=== PATIENT | male | born 1965 | race Caucasian/White ===

== ENCOUNTER 2018-01-18 12:46 | Observation (INO) ==
[2018-01-18] MEDS ORDERED: Isovue-370 500 ML INFUS..BTL IV ONE ×2 (12:53→12:59)
[2018-01-18] MEDS ORDERED: Aspirin 81 MG TAB.CHEW PO ONE (12:54)
[2018-01-18] MEDS ORDERED: Ondansetron 4 MG/2 ML VIAL IVP ONE (13:01)
[2018-01-18] MEDS: Nitroglycerin 0.4 MG TAB.SUBL SL ONE ×2 (13:01→13:08)
[2018-01-18] MEDS ORDERED: Ondansetron 4 MG/2 ML VIAL ONE (13:03)
--- NOTE | 2018-01-18 13:03 | Emergency Department Note ---
Disposition Clinical Impression: Thyroid nodule Chest pain Qualifiers: Chest pain type: unspecified Qualified Code(s): R07.9 - Chest pain, unspecified Disposition: Admitted As Inpatient Condition: Fair Chest Pain HPI - General Chief Complaint: ED Chest Pain Stated Complaint: chest pain Source: patient, EMS Limitations: no limitations Vital Signs Reviewed: Yes Nursing Notes Reviewed: Yes - History of Present Illness HPI Narrative: 52-year-old male presents emergency department with concern for chest pain. Patient states that he was having chest pain this morning about 7 AM, went to sleep. 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 He pulled into the [employer] and it woke up with sharp chest pain radiating to his back. Patient states that the pain is worsened when he had a previous heart attack. He also describes a similar nature. Significant other reports that patient has had right flank pain as well. No history of kidney stones. Patient does have known cardiac history. He has stents. Patient was brought in via EMS who got patient from the [employer] at which he was parked. He did not receive aspirin on the EMS. Severity scale (1-10): 10 - Related Data Allergies Allergy/AdvReac Type Severity Reaction Status Date / Time No Known Allergies Allergy Verified 01/18/18 13:07 All systems ED: reviewed and negative except as stated. Review of Systems: As Per HPI Constitutional: Denies: fever Cardiovascular: Reports: chest pain Respiratory: Reports: dyspnea Gastrointestinal: Reports: nausea, vomiting Genitourinary: Denies: urgency, dysuria, hematuria Musculoskeletal: Reports: back pain, other (Right flank pain) Neurological: Denies: weakness, numbness, paresthesias Chest Pain PMH - Past Medical History Medical history: Reports: coronary artery disease, diabetes, hyperlipidemia, hypertension Psychiatric history: Reports: no psych history - Social History Smoking Status: Current every day smoker Alcohol use: Reports: none Drug use: Reports: none Physical Exam - General Limitations: no limitations General appearance: alert, in distress, other (Patient appears better comfortable, grabbing his chest, putting a rag over his head.) - Head Head exam: normocephalic - Eye Eye exam: Present: EOMI. Absent: scleral icterus - ENT ENT exam: normal oropharynx - Neck Neck exam: Present: trachea midline - Chest Chest inspection: Present: symmetric chest wall rise - Respiratory Respiratory exam: Present: normal lung sounds bilaterally. Absent: respiratory distress - Cardiovascular Cardiovascular exam: Present: regular rate, normal rhythm, normal heart sounds - Abdominal Exam Abdominal exam: Present: soft, Non-Tender. Absent: distention, guarding, rebound, rigidity - Extremities Exam Extremities exam: Present: normal capillary refill - Neurological Exam Neurological exam: Present: alert, oriented X3 - Skin Skin exam: Present: diaphoresis Course Vital Signs Temperature 97.6 F 01/18/18 12:49 Pulse Rate 83 01/18/18 12:49 Respiratory Rate 26 01/18/18 12:49 Blood Pressure 159/81 01/18/18 12:49 O2 Sat by Pulse Oximetry 97 01/18/18 12:49 Temperature 97.6 F 01/18/18 12:49 Pulse Rate 93 01/18/18 15:52 Respiratory Rate 16 01/18/18 15:52 Blood Pressure 155/95 01/18/18 15:52 O2 Sat by Pulse Oximetry 97 01/18/18 15:52 Oxygen Delivery Oxygen Delivery Room Air Chest Pain - MDM Narrative Medical decision making narrative: 52-year-old male presents emergency department with concern for chest pain. Patient initially appears to be in acute distress. He is diaphoretic. He is clutching his chest. Initial electrocardiogram revealed a [address] segment elevation in the anterior and septal leads. There were no reciprocal changes. I spoke with Dr. Goins about the EKG and he agrees that this not not meet STEMI criteria. Patient given aspirin in the emergency part. He is also given nitroglycerin. Patient was given fentanyl. [facility] took him back to perform a CT angiogram of his chest and abdomen and pelvis. These were negative for any signs of intrathoracic or any intra-abdominal abnormality that would be concerning for dissection. There was an incidental 3.2 x 2.2 cm right thyroid lobe nodule. No signs of kidney stones. With a heart score 6, patient was admitted for further evaluation and observation as he is at high risk for ACS. Pain had improved significantly upon admission. Discussion at bedside regarding admission for observation of his chest pain was made with the patient. He agreed with the plan. Patient was not in any acute distress and was given an medically stable at time of admission to the hospital. Angiography CT 01/18/18 12:53 IMPRESSION: No evidence of aortic dissection or aneurysm. No acute abnormality on CTA of the chest, abdomen or pelvis. Mild to moderate atherosclerotic disease of the infrarenal abdominal aorta. Incidentally noted 3.2 x 2.2 cm right thyroid lobe nodule. Recommend further evaluation with thyroid ultrasound in the nonacute outpatient setting. RECOMMENDATIONS: Managing Incidental Thyroid Nodule Detected at CT or MRI or US 1. Further evaluation by thyroid Ultrasound recommended for these incidental nodules: Patient Age 35 years or more - Nodule 1.5 cm in size or greater Recommendations for f/u of Incidental Thyroid Nodules (ITN) found on CT, MR, NM and Extrathyroidal US are based upon the ACR white paper and [place] 3-tiered system for managing ITNs: J Am Vanessa Radiol. 2014;12(2): 143-50 D/ / 01/18/2018 14:07:53 Salvador Sanchez MD / Rosa Umana Interpreting Provider: Salvador Sanchez MD Chest X-Ray 01/18/18 12:54 IMPRESSION: No acute cardiopulmonary findings. D/ / Callie Willis MD / Callie Willis MD Interpreting Provider: Callie Willis MD Abdomen/Pelvis CTA 01/18/18 12:59 IMPRESSION: No evidence of aortic dissection or aneurysm. No acute abnormality on CTA of the chest, abdomen or pelvis. Mild to moderate atherosclerotic disease of the infrarenal abdominal aorta. Incidentally noted 3.2 x 2.2 cm right thyroid lobe nodule. Recommend further evaluation with thyroid ultrasound in the nonacute outpatient setting. RECOMMENDATIONS: Managing Incidental Thyroid Nodule Detected at CT or MRI or US 1. Further evaluation by thyroid Ultrasound recommended for these incidental nodules: Patient Age 35 years or more - Nodule 1.5 cm in size or greater Recommendations for f/u of Incidental Thyroid Nodules (ITN) found on CT, MR, NM and Extrathyroidal US are based upon the ACR white paper and [place] 3-tiered system for managing ITNs: J Am Vanessa Radiol. 2014;12(2): 143-50 D/ / 01/18/2018 14:07:53 Salvador Sanchez MD / Rosa Umana Interpreting Provider: Salvador Sanchez MD - Lab Data Result diagrams: 01/18/18 13:04 01/18/18 13:04 Lab Results 01/18/18 01/18/18 01/18/18 Range/Units 12:54 12:55 13:00 WBC (4.3-11.1) K/mcL RBC (4.19-5.50) M/mcL Hgb (12.9-16.9) g/dL Hct (37.5-50.1) % MCV (83.0-100.0) fL MCH (28.0-33.3) pg MCHC (31.6-35.5) g/dL RDW (11.5-14.5) % Plt Count (140-400) K/mcL MPV (9.4-12.4) fL Immature Gran % (0-4) % Seg Neutrophils % % Lymphocytes % % Monocytes % % Eosinophils % % Basophils % % Neutrophils # (1.6-8.9) K/mcL Lymphocytes # (0.6-4.6) K/mcL Monocytes # (0.0-1.3) K/mcL Eosinophils # (0.0-0.6) K/mcL Basophils # (0.0-0.2) K/mcL PT 11.3 (9.4-12.1) Seconds INR 1.0 APTT 27.7 (26.0-36.0) Seconds Sodium 140 (136-145) mEq/L Potassium 4.3 (3.5-5.1) mEq/L Chloride 107 (98-107) mEq/L Carbon Dioxide 20 L (23-29) mEq/L BUN 17 (6-20) mg/dL Creatinine 1.17 (0.70-1.30) mg/dL Est GFR ( Amer) > 60 (> 60) Est GFR (Non-Af Amer) > 60 (> 60) BUN/Creatinine Ratio 15 (6-26) Glucose 258 H (70-105) mg/dL Calculated Osmolality 300 (280-300) Calcium 9.9 (8.6-10.3) mg/dL Total Bilirubin (0.3-1.0) mg/dL Direct Bilirubin (0.0-0.2) mg/dL Indirect Bilirubin (0.0-1.2) mg/dL AST (13-39) Units/L ALT (7-52) Units/L Alkaline Phosphatase (34-104) Units/L Troponin I (< 0.04) ng/mL Serum Total Protein (6.4-8.9) g/dL Albumin (3.5-5.7) g/dL Globulin (2.4-3.5) g/dL Albumin/Globulin Ratio (1.1-2.2) Lipase 8 L (11-82) Units/L Urine Color (Yellow) Urine Clarity (Clear) Urine pH (5.0-8.0) pH Units Ur Specific [place] (1.010-1.025) Urine Protein (Neg-Trace) mg/dL Urine Glucose (UA) (Normal) mg/dL Urine Ketones (Negative) mg/dL Urine Blood (Negative) Urine Nitrite (Negative) Urine Bilirubin (Negative) Urine Urobilinogen (Normal) mg/dL Ur Leukocyte Esterase (Negative) Urine Microscopic RBC (0-3) per hpf Urine Microscopic WBC (0-3) per hpf Ur Squamous Epith Cells (None-Few) per lpf Urine Bacteria (None-Few) per hpf Hyaline Casts (None-Few) per lpf Ur Culture Indicated? (NO) Specimen Rejected 01/18/18 01/18/18 01/18/18 Range/Units 13:02 13:04 13:04 WBC 11.4 H (4.3-11.1) K/mcL RBC 5.10 (4.19-5.50) M/mcL Hgb 16.2 (12.9-16.9) g/dL Hct 46.5 (37.5-50.1) % MCV 91.2 (83.0-100.0) fL MCH 31.8 (28.0-33.3) pg MCHC 34.8 (31.6-35.5) g/dL RDW 12.4 (11.5-14.5) % Plt Count 171 (140-400) K/mcL MPV 11.2 (9.4-12.4) fL Immature Gran % 0.4 (0-4) % Seg Neutrophils % 77.3 % Lymphocytes % 16.4 % Monocytes % 4.9 % Eosinophils % 0.6 % Basophils % 0.4 % Neutrophils # 8.8 (1.6-8.9) K/mcL Lymphocytes # 1.9 (0.6-4.6) K/mcL Monocytes # 0.6 (0.0-1.3) K/mcL Eosinophils # 0.1 (0.0-0.6) K/mcL Basophils # 0.1 (0.0-0.2) K/mcL PT (9.4-12.1) Seconds INR APTT (26.0-36.0) Seconds Sodium Cancelled (136-145) mEq/L Potassium Cancelled (3.5-5.1) mEq/L Chloride Cancelled (98-107) mEq/L Carbon Dioxide Cancelled (23-29) mEq/L BUN Cancelled (6-20) mg/dL Creatinine Cancelled (0.70-1.30) mg/dL Est GFR ( Amer) Cancelled (> 60) Est GFR (Non-Af Amer) Cancelled (> 60) BUN/Creatinine Ratio Cancelled (6-26) Glucose Cancelled (70-105) mg/dL Calculated Osmolality Cancelled (280-300) Calcium Cancelled (8.6-10.3) mg/dL Total Bilirubin 0.5 (0.3-1.0) mg/dL Direct Bilirubin 0.2 (0.0-0.2) mg/dL Indirect Bilirubin 0.3 (0.0-1.2) mg/dL AST 15 (13-39) Units/L ALT 18 (7-52) Units/L Alkaline Phosphatase 89 (34-104) Units/L Troponin I 0.03 (< 0.04) ng/mL Serum Total Protein 7.0 (6.4-8.9) g/dL Albumin 4.8 (3.5-5.7) g/dL Globulin 2.2 L (2.4-3.5) g/dL Albumin/Globulin Ratio 2.2 (1.1-2.2) Lipase (11-82) Units/L Urine Color (Yellow) Urine Clarity (Clear) Urine pH (5.0-8.0) pH Units Ur Specific [place] (1.010-1.025) Urine Protein (Neg-Trace) mg/dL Urine Glucose (UA) (Normal) mg/dL Urine Ketones (Negative) mg/dL Urine Blood (Negative) Urine Nitrite (Negative) Urine Bilirubin (Negative) Urine Urobilinogen (Normal) mg/dL Ur Leukocyte Esterase (Negative) Urine Microscopic RBC (0-3) per hpf Urine Microscopic WBC (0-3) per hpf Ur Squamous Epith Cells (None-Few) per lpf Urine Bacteria (None-Few) per hpf Hyaline Casts (None-Few) per lpf Ur Culture Indicated? (NO) Specimen Rejected 01/18/18 01/18/18 Range/Units 13:04 14:29 WBC (4.3-11.1) K/mcL RBC (4.19-5.50) M/mcL Hgb (12.9-16.9) g/dL Hct (37.5-50.1) % MCV (83.0-100.0) fL MCH (28.0-33.3) pg MCHC (31.6-35.5) g/dL RDW (11.5-14.5) % Plt Count (140-400) K/mcL MPV (9.4-12.4) fL Immature Gran % (0-4) % Seg Neutrophils % % Lymphocytes % % Monocytes % % Eosinophils % % Basophils % % Neutrophils # (1.6-8.9) K/mcL Lymphocytes # (0.6-4.6) K/mcL Monocytes # (0.0-1.3) K/mcL Eosinophils # (0.0-0.6) K/mcL Basophils # (0.0-0.2) K/mcL PT (9.4-12.1) Seconds INR APTT (26.0-36.0) Seconds Sodium (136-145) mEq/L Potassium (3.5-5.1) mEq/L Chloride (98-107) mEq/L Carbon Dioxide (23-29) mEq/L BUN (6-20) mg/dL Creatinine (0.70-1.30) mg/dL Est GFR ( Amer) (> 60) Est GFR (Non-Af Amer) (> 60) BUN/Creatinine Ratio (6-26) Glucose (70-105) mg/dL Calculated Osmolality (280-300) Calcium (8.6-10.3) mg/dL Total Bilirubin (0.3-1.0) mg/dL Direct Bilirubin (0.0-0.2) mg/dL Indirect Bilirubin (0.0-1.2) mg/dL AST (13-39) Units/L ALT (7-52) Units/L Alkaline Phosphatase (34-104) Units/L Troponin I (< 0.04) ng/mL Serum Total Protein (6.4-8.9) g/dL Albumin (3.5-5.7) g/dL Globulin (2.4-3.5) g/dL Albumin/Globulin Ratio (1.1-2.2) Lipase (11-82) Units/L Urine Color Yellow (Yellow) Urine Clarity Clear (Clear) Urine pH 6.0 (5.0-8.0) pH Units Ur Specific [place] > 1.030 H (1.010-1.025) Urine Protein Negative (Neg-Trace) mg/dL Urine Glucose (UA) >=1000 H (Normal) mg/dL Urine Ketones Trace H (Negative) mg/dL Urine Blood Trace H (Negative) Urine Nitrite Negative (Negative) Urine Bilirubin Negative (Negative) Urine Urobilinogen Normal (Normal) mg/dL Ur Leukocyte Esterase Negative (Negative) Urine Microscopic RBC 3-5 H (0-3) per hpf Urine Microscopic WBC 0-3 (0-3) per hpf Ur Squamous Epith Cells None Seen (None-Few) per lpf Urine Bacteria None Seen (None-Few) per hpf Hyaline Casts None Seen (None-Few) per lpf Ur Culture Indicated? NO (NO) Specimen Rejected Hemolyzed - EKG Data EKG attestation: Yes I reviewed and interpreted this EKG. EKG results narrative: 12:51 Ventricular rate 70 bpm, CO interval 197 ms, QRS duration 125 ms, QT 405 ms, QTC 438 ms, normal axis. Sinus rhythm with a ventricular rate of [address] segment elevations of 1 mm in the anterior, septal leads. No previous EKG to compare this to. This EKG was discussed with Dr. Goins at 1307 who stated to have a repeat EKG and that this was not a STEMI at this time. 13:42 Ventricular rate 75 bpm, CO interval 202 ms, QS rastafarian 122 ms, QT 450 ms, QTC 443 ms no changes from previous EKG. Heart Score - Score History: Highly Suspicious EKG: Non Specific repolarisation Disturbance Age: 45-65 Risk Factors: Equal/Greater than 3 risk factor or history of atherosclerotic disease Troponin: Less than normal limit HEART Score Total: 6 Attestation Statement - Attestation Attestation: I, Ayan Kapoor, examined this patient and my medical decision-making was reviewed with the MEDIA SENIOR RECRUITER/PA/Advanced Practice Nurse/Resident Physician. I agree with the documented findings, disposition and treatment plan as described except to the extent set forth below. 52-year-old male presents emergency Department with concerns of acute onset chest and back pain. Patient states symptoms started around 7 AM, he "took his medications" and then took a nap. He states the pain was much worse upon waking. In the emergency department he complains of a central chest pain that radiates to his upper and lower back. He also complains of right flank pain. Patient is diaphoretic on exam he is also nauseated. Patient has a history of cardiac disease with [address] He is from [place] and does not have a glass bender in the area. Initial EKG did not show evidence of STEMI. Initial troponin was negative. CTA of the chest abdomen pelvis was negative for evidence of dissection, PE, or other surgical pathology. Patient agreed to stay in the hospital for further care and evaluation of his chest pain to rule out ACS.
[2018-01-18] MEDS ORDERED: *HR* FentaNYL (PF) 100 MCG/2 ML VIAL IVP ONE ×3 (13:08→15:31)
[2018-01-18 13:36] LABS: Basophils # 0.1 K/mcL (0.0-0.2); Basophils % 0.4 %; Eosinophils # 0.1 K/mcL (0.0-0.6); Eosinophils % 0.6 %; Hematocrit 46.5 % (37.5-50.1); Hemoglobin 16.2 g/dL (12.9-16.9); Immature Granulocytes % 0.4 % (0-4); Lymphocytes # 1.9 K/mcL (0.6-4.6); Lymphocytes % 16.4 %; Mean Corpuscular HGB Conc 34.8 g/dL (31.6-35.5); Mean Corpuscular Hemoglobin 31.8 pg (28.0-33.3); Mean Corpuscular Volume 91.2 fL (83.0-100.0); Mean Platelet Volume 11.2 fL (9.4-12.4); Monocytes # 0.6 K/mcL (0.0-1.3); Monocytes % 4.9 %; Neutrophils # 8.8 K/mcL (1.6-8.9); Platelet Count 171 K/mcL (140-400); Red Cell Distribution Width 12.4 % (11.5-14.5); Segmented Neutrophils % 77.3 %
[2018-01-18 13:45] LABS: Prothrombin Time 11.3 Seconds (9.4-12.1)
[2018-01-18 13:48] LABS: Activated Partial Thrombo Time 27.7 Seconds (26.0-36.0)
[2018-01-18 13:55] LABS: Albumin 4.8 g/dL (3.5-5.7); Albumin/Globulin Ratio 2.2 (1.1-2.2); Bilirubin,Direct 0.2 mg/dL (0.0-0.2); Bilirubin,Indirect 0.3 mg/dL (0.0-1.2); Bilirubin,Total 0.5 mg/dL (0.3-1.0); Globulin 2.2 g/dL (2.4-3.5)
[2018-01-18 14:39] LABS: Bilirubin,Urine Negative (Negative); Blood,Urine Trace (Negative); Clarity,Urine Clear (Clear); Color,Urine Yellow (Yellow); Glucose,Urine (UA) >=1000 mg/dL (Normal); Ketones,Urine Trace mg/dL (Negative); Leukocyte Esterase,Urine Negative (Negative); Nitrite,Urine Negative (Negative); Protein,Urine Negative (Neg-Trace); Specific Gravity,Urine > 1.030 (1.010-1.025); Urobilinogen,Urine Normal (Normal)
[2018-01-18 14:42] LABS: Bacteria,Urine None Seen per hpf (None-Few); Hyaline Casts,Urine None Seen per lpf (None-Few); Squamous Epithelial Cell,Urine None Seen per lpf (None-Few); WBC,Urine 0-3 per hpf (0-3)
[2018-01-18 14:43] LABS: BUN/Creatinine Ratio 15 (6-26); Blood Urea Nitrogen 17 mg/dL (6-20); Calcium 9.9 mg/dL (8.6-10.3); Carbon Dioxide 20 mEq/L (23-29); Chloride 107 mEq/L (98-107); Glucose 258 mg/dL (70-105); Osmolality,Calculated 300 (280-300); Potassium 4.3 mEq/L (3.5-5.1); Sodium 140 mEq/L (136-145); eGFR For African Americans > 60 (> 60); eGFR For Non-African Americans > 60 (> 60)
[2018-01-18] MEDS ORDERED: 0.9 % Sodium Chloride 1,000 ML IVC ONE (15:06)
--- NOTE | 2018-01-18 18:54 | Internal Med History&Physical ---
Date of Encounter: 01/18/18 Time of Encounter: 18:54 Internal Medicine - H&P: HPI History of present illness: Mr. Oliveira is a 52 year old male 52-year-old male presents emergency department with concern for chest pain that is smilar to his previous heart attack. Initial electrocardiogram revealed a [address] segment elevation in the anterior and septal leads. Cardiology stated that is not not meet STEMI criteria. CT angiogram of his chest and abdomen and pelvis were negative for any signs of intrathoracic or any intra-abdominal abnormality that would be concerning for dissection. There was an incidental 3.2 x 2.2 cm right thyroid lobe nodule. Past Med Surg Social Fam HX - Past Medical History Medical history: COPD, coronary artery disease, diabetes, hyperlipidemia, hypertension Psychiatric history: no psych history - Past Surgical History Additional surgical history: stents x5, back sx - Social History Smoking Status: Current every day smoker Smokeless Tobacco Status: No Alcohol use: none Drug use: none - Family History Mother Living Status: Cause of : COPD Father Living Status: Still Living Internal Medicine - H&P: Meds 3 Allergy/AdvReac Type Severity Reaction Status Date / Time No Known Allergies Allergy Verified 01/18/18 13:07 All Systems PM: A 10-system review of systems was performed and is negative for pertinent findings except as documented above in the HPI. - Constitutional Constitutional: no chills, no fever(s), no night sweats - Cardiovascular Cardiovascular ROS IM: chest pain, no diaphoresis, no dyspnea, no lightheadedness, no palpitations, no syncope - Respiratory Respiratory: no cough, no dyspnea, no wheezing, no excessive phlegm production - Constitutional Vitals: Temp Pulse Resp BP Pulse Ox 98.0 F 81 18 148/80 96 01/18/18 18:01 01/18/18 18:01 01/18/18 18:01 01/18/18 18:01 01/18/18 18:01 General appearance: Present: A&O X 3 - Head Head exam: Present: atraumatic, normocephalic - Neck Neck exam general surgery: Present: supple, trachea midline. Absent: lymphadenopathy - Respiratory Respiratory exam: Present: CTAB. Absent: accessory muscle use, rales, rhonchi, wheezes - Cardiovascular Cardiovascular exam: Present: RRR, +S1, +S2. Absent: diastolic murmur, gallop, rubs, systolic murmur - GI/Abdominal GI/Abdominal exam: Present: normal bowel sounds, soft, no peritoneal signs. Absent: distended, tenderness - Extremities Exam Extremities exam: Present: warm, radial pulses palpable and symmetrical. Absent : calf tenderness, cyanotic, pedal edema Internal Med - H&P Results - Labs CBC & Chem 7: 01/19/18 00:38 01/19/18 00:38 - Assessment and plan (1) Chest pain Current Visit: Yes Status: Acute Assessment and plan: ASSESSMENT: - Chest pain DD *CAD *Muskuloskeletal CP - myofascial strain, costochondritis *GERD *Esophageal spasm PLAN: - cardiac enzymes x 2 q 8 hr - EKG now and in AM - ASA - O2 by NC to keep SpO2 greater than 92% - UA - Urine toxic screen - CBCD, BMP in AM - Fasting lipids - Tylenol 650 mg PO q 4-6 hr PRN headache - Home meds (check list) - Heparin 5000 U SQ BID - 2D Echo - Cardiology consult Qualifiers: Chest pain type: unspecified Qualified Code(s): R07.9 - Chest pain, unspecified (2) Thyroid nodule Current Visit: Yes Status: Acute (3) Diabetes mellitus Current Visit: Yes Status: Acute (4) Hypertension Current Visit: Yes Status: Acute (5) Coronary artery disease Current Visit: Yes Status: Acute (6) DVT prophylaxis Current Visit: Yes Status: Acute - Time Spent With Patient Total time spent is greater than 50% in coordination of care (as documented) at patient's floor/unit and/or counseling patient:
[2018-01-18] MEDS ORDERED: Ondansetron 4 MG/2 ML VIAL IVP PRN (18:57)
[2018-01-18] MEDS ORDERED: Acetaminophen 325 MG TABLET PO PRN (18:57)
[2018-01-18] MEDS ORDERED: *HR* OxyCODONE Immed Rel 5 MG TABLET PO PRN (18:57)
[2018-01-18] MEDS ORDERED: Naloxone 0.4 MG/ML INJ IVP PRN (18:57)
[2018-01-18] MEDS: *HR* HYDROcodone/Acet 5/325 mg TABLET PO PRN (19:52)
[2018-01-18 19:56] LABS: Bilirubin,Urine Negative (Negative); Blood,Urine Large (Negative); Clarity,Urine Clear (Clear); Color,Urine Yellow (Yellow); Glucose,Urine (UA) >=1000 mg/dL (Normal); Ketones,Urine Negative (Negative); Leukocyte Esterase,Urine Negative (Negative); Nitrite,Urine Negative (Negative); Protein,Urine Negative (Neg-Trace); Specific Gravity,Urine > 1.030 (1.010-1.025); Urobilinogen,Urine Normal (Normal)
[2018-01-18 19:59] LABS: Bacteria,Urine None Seen per hpf (None-Few); Hyaline Casts,Urine None Seen per lpf (None-Few); RBC,Urine 50-100 per hpf (0-3); Squamous Epithelial Cell,Urine None Seen per lpf (None-Few); WBC,Urine 0-3 per hpf (0-3)
[2018-01-18] MEDS ORDERED: Dextrose Gel 15 GM/37.5 ML TUBE PO PRN ×2 (22:43)
[2018-01-18] MEDS ORDERED: *HR* Dextrose 50 % in Water (Syg) 50 ML SYRINGE IVP PRN (22:43)
[2018-01-18] MEDS ORDERED: D5% in Water 1,000 ML IVC PRN (22:43)
[2018-01-18] MEDS ORDERED: Insulin LISPRO 300 UNITS/3 ML VIAL SQ SCH (23:45)
[2018-01-19 01:02] LABS: Hemoglobin 15.2 g/dL (12.9-16.9); Mean Corpuscular HGB Conc 35.3 g/dL (31.6-35.5); Mean Corpuscular Volume 93.3 fL (83.0-100.0); Mean Platelet Volume 11.2 fL (9.4-12.4); Platelet Count 153 K/mcL (140-400); Red Blood Count 4.61 M/mcL (4.19-5.50); Red Cell Distribution Width 12.5 % (11.5-14.5)
[2018-01-19 01:10] LABS: INR 1.1; Prothrombin Time 12.7 Seconds (9.4-12.1)
[2018-01-19 01:13] LABS: Activated Partial Thrombo Time 27.7 Seconds (26.0-36.0)
[2018-01-19 01:22] LABS: Alanine Aminotransferase 15 Units/L (7-52); Albumin/Globulin Ratio 1.9 (1.1-2.2); Alkaline Phosphatase 70 Units/L (34-104); Aspartate Amino Transferase 14 Units/L (13-39); BUN/Creatinine Ratio 14 (6-26); Bilirubin,Total 0.6 mg/dL (0.3-1.0); Blood Urea Nitrogen 15 mg/dL (6-20); Calcium 9.1 mg/dL (8.6-10.3); Carbon Dioxide 26 mEq/L (23-29); Chloride 106 mEq/L (98-107); Chol/HDL Ratio 6.9 (0-4.9); Cholesterol 172 mg/dL (< 200); Globulin 2.1 g/dL (2.4-3.5); Glucose 214 mg/dL (70-105); HDL Cholesterol 25 mg/dL (40-59); LDL Cholesterol,Calculated 101 mg/dL (0-99); Osmolality,Calculated 293 (280-300); Phosphorous 3.4 mg/dL (2.7-4.5); Potassium 3.8 mEq/L (3.5-5.1); Sodium 138 mEq/L (136-145); Total Protein 6.1 g/dL (6.4-8.9); Triglycerides 232 mg/dL (< 150); eGFR For African Americans > 60 (> 60); eGFR For Non-African Americans > 60 (> 60)
[2018-01-19] MEDS: *HR* HYDROcodone/Acet 5/325 mg TABLET PO PRN (03:32)
[2018-01-19 07:28] VITALS: BP 129/80
[2018-01-19] MEDS ORDERED: Insulin LISPRO 300 UNITS/3 ML VIAL SQ SCH (07:30)
--- NOTE | 2018-01-19 11:24 | Event Note ---
Date of Encounter: 01/19/18 Time of Encounter: 07:30 I was informed by primary RN that pt needed to sign out AMA. 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 He states that he has a truck load of live chickens and is unable to stay and has no one who can help him. He left prior to me seeing him, no assessment or evaluation was completed. Pt left AMA.
--- NOTE | 2018-01-21 08:18 | Electrocardiograph Report ---
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
--- NOTE | 2018-01-21 09:14 | Electrocardiograph Report ---
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
== END 2018-01-19 07:58 | disposition left against medical advice (07) ==
LOC: 3BNU 12:46 → EMEROO 12:46 → 3BNU 17:24
PROVIDERS: ADMIT Internal Medicine Nephrology; ATTEND Internal Medicine Nephrology